=== PATIENT | female | born 1945 | race Caucasian/White ===

== ENCOUNTER 2019-08-06 06:53 | Day surgery (SDC) | payer OTHER, BC ==
[2019-08-02 14:49] VITALS: BMI 27.7
[2019-08-06] MEDS ORDERED: PROPOFOL 20 ML ONE ×2 (08:34→09:53)
[2019-08-06] MEDS ORDERED: MIDAZOLAM HCL 2 MG/2 ML SINGLE DOSE VIAL ONE (08:34)
[2019-08-06] MEDS ORDERED: LIDOCAINE HCL/PF 2% SDV 5ML VIAL ONE (08:34)
[2019-08-06] MEDS ORDERED: DEXAMETHASONE SOD PHOSPHATE 4 MG/1 ML VIAL ONE (08:34)
[2019-08-06] MEDS ORDERED: ceFAZolin SODIUM 1 GM VIAL ONE (08:34)
[2019-08-06] MEDS ORDERED: ONDANSETRON 4 MG/2 ML VIAL ONE (08:34)
[2019-08-06] MEDS ORDERED: KETOROLAC TROMETHAMINE 30 MG/1 ML VIAL ONE (08:34)
[2019-08-06] MEDS ORDERED: EPINEPHrine/PF 1 MG/1 ML (1:1,000) AMPULE ONE ×2 (09:17→09:19)
[2019-08-06] MEDS ORDERED: BUPIVACAINE HCL 0.25% 125 MG/50 ML VIAL ONE (09:18)
[2019-08-06] MEDS ORDERED: BUPIVACAINE HCL/PF 0.25% (2.5MG/ML) 10 ML VIAL IJ ONE (10:00)
[2019-08-06] MEDS ORDERED: oxyCODONE HCL 5 MG TABLET PO PRN ×2 (11:41)
[2019-08-06] MEDS ORDERED: ONDANSETRON 4 MG/2 ML VIAL IVPUSH PRN (11:41)
[2019-08-06] MEDS ORDERED: LACTATED RINGERS SOLUTION 1,000 ML IV SCH (11:45)
--- NOTE | 2019-08-06 11:47 | OP ---
DATE OF OPERATION: 08/06/2019 Done at [facility] SURGEON: Andriy Lucas MD PRINT DESIGNER: AICHA Pascal PREOPERATIVE DIAGNOSES: 1. Right knee medial and lateral meniscal tear. 2. Right knee cartilage injury. 3. Right knee synovitis. POSTOPERATIVE DIAGNOSES: 1. Right knee medial and lateral meniscal tear. 2. Right knee cartilage injury. 3. Right knee synovitis. PROCEDURE: 1. Right knee arthroscopy with partial meniscectomy medial and lateral meniscus, CPT code 28213. 2. Right knee arthroscopy with chondroplasty and abrasion-plasty, CPT code 43060. 3. Right knee arthroscopy with synovectomy, CPT code 97529. FINDINGS: 1. Medial meniscus [id number] horn tear central 1/3. 2. Lateral meniscus posterior 1/3 body total. 3. Synovitis patellofemoral medial and lateral notch area. 4. Central grade 2-3 cartilage injury medial femoral condyle and tibial plateau. 5. ACL and PCL intact. 6. Diffuse grade 1-2 cartilage injury lateral joint line. 7. Central grade 3-4 cartilage injury patellofemoral trochlea anterior portion with grade 2-3 changes patella. PROCEDURE: Informed consent was obtained. The patient came to the operating room, where the lower extremity was prepped and draped in a sterile fashion. A tourniquet was placed on the upper thigh, but not inflated. Using standard arthroscopic technique, a lateral incision and portal was made to allow for introduction of the camera into the suprapatellar bursa. This was then taken to the medial joint line, where under direct visualization, a medial incision and portal was made. Excessive synovium noted in the medial, lateral and patellofemoral and notch area was removed by an upbiter, shaver and Bovie cautery. This was found to bring in inflammatory tissue into the joint surface, a source of pain and dysfunction. Probing of the medial and lateral meniscus found tears, as described in the findings. These were removed with the upbiter and shaver and taken back to a stable rim. Grade 2 to 3 degenerative changes were treated with a chondroplasty, removing all flaking surfaces with low-setting Bovie along the periphery to prevent further flaking. Grade 4 changes, as noted, were treated with an abrasoplasty, creating a bleeding surface at the bone/cartilage interface. Aggressive debridement with shaver/marian created bleeding surface. Micro fracture also done when indicated in findings. All areas of the knee were once again reexamined. The knee was then drained and a single suture was placed in all portals. A sterile dressing was placed and the patient was transferred to the recovery room without complication. The PA listed above was present and assisted at surgery. Their presence was absolutely medically necessary for the completion of the procedure. They helped hold the arthroscopy, pass instruments (and implants when indicated) and the procedure could not have been completed without their assistance. ANDRIY LUCAS M.D. [id number]
[2019-08-06 12:01] VITALS: TEMP 97.6
[2019-08-06 12:30] VITALS: BP 125/66
[2019-08-06 13:02] VITALS: PULSE 64
== END 2019-08-06 13:00 | disposition home or self-care (01) ==
LOC: FASU 06:53
PROVIDERS: ATTEND Orthopaedic Surgery
PROC: 0SBC4ZZ Excision of Right Knee Joint, Percutaneous Endoscopic Approach (ICD-10-PCS; 2019-08-06)
PROC: 0SBC4ZZ Excision of Right Knee Joint, Percutaneous Endoscopic Approach (ICD-10-PCS; 2019-08-06)
PROC: 0SBC4ZZ Excision of Right Knee Joint, Percutaneous Endoscopic Approach (ICD-10-PCS; principal; 2019-08-06 08:30)
DX: S83.241A Other tear of medial meniscus, current injury, right knee, initial encounter (principal); S83.281A Other tear of lateral meniscus, current injury, right knee, initial encounter; S83.8X1A Sprain of other specified parts of right knee, initial encounter; M65.861 Other synovitis and tenosynovitis, right lower leg; X58.XXXA Exposure to other specified factors, initial encounter; Y93.9 Activity, unspecified; Y92.9 Unspecified place or not applicable
CPT/HCPCS: 94760

== ENCOUNTER 2020-10-19 04:42 | Day surgery (SDC) | payer OTHER, BC ==
[2020-10-18 11:23] VITALS: BMI 25.8
[2020-10-19 08:31] VITALS: TEMP 97.3
[2020-10-19 09:14] VITALS: BP 138/58; PULSE 63
== END 2020-10-19 09:20 | disposition home or self-care (01) ==
LOC: JASU-ENDO 04:42
PROVIDERS: ATTEND Internal Medicine Gastroenterology
PROC: 0DBL8ZX Excision of Transverse Colon, Via Natural or Artificial Opening Endoscopic, Diagnostic (ICD-10-PCS; principal; 2020-10-19 08:00)
DX: Z12.11 Encounter for screening for malignant neoplasm of colon (principal); D12.3 Benign neoplasm of transverse colon; K57.30 Diverticulosis of large intestine without perforation or abscess without bleeding; Z86.010 Personal history of colon polyps
CPT/HCPCS: 88305-TC

== ENCOUNTER 2023-12-04 04:29 | Day surgery (SDC) | payer OTHER, BC ==
[2023-12-01 12:57] VITALS: BMI 27.3
[2023-12-04 08:17] VITALS: TEMP 98
[2023-12-04 08:52] VITALS: BP 118/46; PULSE 60; RESP 11
== END 2023-12-04 08:52 | disposition home or self-care (01) ==
LOC: JASU-ENDO 04:29
PROVIDERS: ATTEND Internal Medicine Gastroenterology
PROC: 0DBL8ZX Excision of Transverse Colon, Via Natural or Artificial Opening Endoscopic, Diagnostic (ICD-10-PCS; principal; 2023-12-04 08:00)
DX: Z12.11 Encounter for screening for malignant neoplasm of colon (principal); K57.30 Diverticulosis of large intestine without perforation or abscess without bleeding; D12.3 Benign neoplasm of transverse colon; Z86.010 Personal history of colon polyps
CPT/HCPCS: 88305-TC